=== PATIENT | male | born 1940 | race Caucasian/White ===

== ENCOUNTER 2018-08-22 09:18 | Inpatient (IN) | payer MEDICARE, MEDICAID | END 2018-08-31 14:55 | LOC: SSTAY O 09:18 → MED 3N 08-27 11:03 → CICU 2S 17:00 | PROC: 02100A3 Bypass Coronary Artery, One Artery from Coronary Artery with Autologous Arterial Tissue, Open Approach (ICD-10-PCS; principal; 2018-08-22 14:14) | PROC: 4A023N7 Measurement of Cardiac Sampling and Pressure, Left Heart, Percutaneous Approach (ICD-10-PCS; 2018-08-22 14:14) | PROC: 0211099 Bypass Coronary Artery, Two Arteries from Left Internal Mammary with Autologous Venous Tissue, Open Approach (ICD-10-PCS; 2018-08-22 14:14) | PROC: 06BQ4ZZ Excision of Left Saphenous Vein, Percutaneous Endoscopic Approach (ICD-10-PCS; 2018-08-22 14:14) | DX: I25.10 Atherosclerotic heart disease of native coronary artery without angina pectoris (principal); I25.42 Coronary artery dissection; F17.200 Nicotine dependence, unspecified, uncomplicated ==